=== PATIENT | female | born 1950 ===

== ENCOUNTER 2021-11-21 05:39 | Inpatient (IN) ==
[2021-11-21] MEDS ORDERED: 0.9 % Sodium Chloride 1,000 ML IVC ONE (05:45)
[2021-11-21 06:04] LABS: Basophils % 0.1 %; Eosinophils % 0.1 %; Hematocrit 35.4 % (35.3-44.9); Hemoglobin 11.6 g/dL (11.5-15.4); Immature Granulocytes % 0.3 % (0-4); Lymphocytes # 0.4 K/mcL (0.6-4.6); Lymphocytes % 5.2 %; Mean Corpuscular HGB Conc 32.8 g/dL (31.6-35.5); Mean Corpuscular Hemoglobin 28.9 pg (28.0-33.3); Mean Corpuscular Volume 88.1 fL (83.0-100.0); Mean Platelet Volume 11.9 fL (9.4-12.4); Monocytes # 0.8 K/mcL (0.0-1.3); Monocytes % 10.3 %; Neutrophils # 6.5 K/mcL (1.6-8.9); Nucleated Red Blood Cells 2.2 /100 WBC (0); Platelet Count 292 K/mcL (140-400); Red Blood Count 4.02 M/mcL (3.82-4.97); Red Cell Distribution Width 17.7 % (11.5-14.5); White Blood Count 7.7 K/mcL (4.3-11.1)
[2021-11-21 06:30] LABS: Troponin I 0.07 ng/mL (< 0.04)
[2021-11-21 06:43] LABS: Influenza A PCR Negative (Negative); Influenza B PCR Negative (Negative); Resp. Syncytial Virus PCR Negative (Negative)
[2021-11-21 06:48] LABS: SARS-CoV-2 by PCR (In House) Negative (Negative)
[2021-11-21 06:51] LABS: Alanine Aminotransferase 103 Units/L (7-52); Albumin 3.7 g/dL (3.5-5.7); Alkaline Phosphatase 128 Units/L (34-104); Aspartate Amino Transferase 102 Units/L (13-39); BUN/Creatinine Ratio 32 (6-26); Bilirubin,Total 1.7 mg/dL (0.3-1.0); Blood Urea Nitrogen 29 mg/dL (8-23); Calcium 9.7 mg/dL (8.6-10.3); Carbon Dioxide 24 mEq/L (23-29); Chloride 100 mEq/L (98-107); Creatine Kinase 59 Units/L (30-223); Globulin 3.8 g/dL (2.4-3.5); Glucose 119 mg/dL (70-105); Osmolality,Calculated 287 (280-300); Sodium 135 mEq/L (136-145); Total Protein 7.5 g/dL (6.4-8.9); eGFR For African Americans > 60 (> 60); eGFR For Non-African Americans 60 (> 60)
[2021-11-21 07:33] LABS: Bacteria,Urine Few per hpf (None-Few); Bilirubin,Urine Negative (Negative); Blood,Urine Moderate (Negative); Clarity,Urine Clear (Clear); Color,Urine Yellow (Yellow); Glucose,Urine (UA) Normal (Normal); Hyaline Casts,Urine Few per lpf (None Seen); Ketones,Urine Trace mg/dL (Negative); Leukocyte Esterase,Urine Moderate (Negative); Mucus,Urine Many per lpf (None-Few); Nitrite,Urine Positive (Negative); Protein,Urine 100 mg/dL (Neg-Trace); RBC,Urine 15-30 per hpf (0-3); Specific Gravity,Urine > 1.030 (1.010-1.025); Squamous Epithelial Cell,Urine Few per hpf (None-Few)
[2021-11-21] MEDS ORDERED: Azithromycin 500 MG in 0.9 % Sodium Chloride 250 ML IVPB ONE (07:41)
[2021-11-21] MEDS ORDERED: cefTRIAXone 1,000 MG in Water for inj. (sterile) 10 ML IVP ONE (07:41)
[2021-11-21] MEDS ORDERED: cefTRIAXone 1,000 MG in 0.9 % Sodium Chloride Mini Bag 100 ML IVPB ONE (08:15)
[2021-11-21] MEDS ORDERED: Morphine Sulfate 2 MG/ML SYRINGE IVP STA (08:46)
[2021-11-21] MEDS ORDERED: *HR* HYDROcodone/Acet 5/325 mg TABLET PO PRN (09:46)
[2021-11-21 10:44] LABS: Bilirubin,Direct 0.6 mg/dL (0.0-0.2)
[2021-11-21 11:08] LABS: C-Reactive Protein 49 mg/L (Less than 10)
[2021-11-21 11:26] LABS: Ferritin 67 ng/mL (10-120)
[2021-11-21] MEDS ORDERED: Naloxone 0.4 MG/ML INJ IVP PRN (12:26)
[2021-11-21] MEDS ORDERED: Perflutren Lipid Microsphere 1.3 ML in 0.9 % Sodium Chloride 8.7 ML IVP PRN (12:28)
[2021-11-21] MEDS: Ringers Solution, Lactated 1,000 ML IVC SCH (14:08)
[2021-11-21] MEDS: Gabapentin 300 MG CAPSULE PO SCH (20:45)
[2021-11-21] MEDS: Melatonin 3 MG TABLET PO PRN (21:50)
[2021-11-21] MEDS: Acetaminophen 325 MG TABLET PO PRN (22:11)
[2021-11-22 01:58] LABS: Hematocrit 32.7 % (35.3-44.9); Hemoglobin 10.5 g/dL (11.5-15.4); Mean Corpuscular HGB Conc 32.1 g/dL (31.6-35.5); Mean Corpuscular Hemoglobin 29.1 pg (28.0-33.3); Mean Corpuscular Volume 90.6 fL (83.0-100.0); Platelet Count 216 K/mcL (140-400); Red Blood Count 3.61 M/mcL (3.82-4.97); Red Cell Distribution Width 17.4 % (11.5-14.5); White Blood Count 9.3 K/mcL (4.3-11.1)
[2021-11-22 02:07] LABS: INR 1.7; Prothrombin Time 18.6 Seconds (9.4-12.1)
[2021-11-22 02:21] LABS: Alanine Aminotransferase 85 Units/L (7-52); Albumin 3.1 g/dL (3.5-5.7); Albumin/Globulin Ratio 0.9 (1.1-2.2); Alkaline Phosphatase 97 Units/L (34-104); Aspartate Amino Transferase 100 Units/L (13-39); BUN/Creatinine Ratio 39 (6-26); Bilirubin,Total 1.5 mg/dL (0.3-1.0); Blood Urea Nitrogen 29 mg/dL (8-23); Calcium 8.9 mg/dL (8.6-10.3); Carbon Dioxide 22 mEq/L (23-29); Chloride 105 mEq/L (98-107); Globulin 3.4 g/dL (2.4-3.5); Glucose 91 mg/dL (70-105); Magnesium 1.9 mg/dL (1.6-2.6); Osmolality,Calculated 289 (280-300); Phosphorous 2.6 mg/dL (2.7-4.5); Sodium 137 mEq/L (136-145); Total Protein 6.5 g/dL (6.4-8.9); eGFR For African Americans > 60 (> 60); eGFR For Non-African Americans > 60 (> 60)
[2021-11-22] MEDS: *HR* Enoxaparin 40 MG/0.4 ML SYRINGE SQ SCH (05:50)
[2021-11-22] MEDS: Azithromycin 250 MG TABLET PO SCH (10:07)
[2021-11-22] MEDS: FLUoxetine 20 MG CAPSULE PO SCH (10:07)
[2021-11-22] MEDS: cefTRIAXone 1,000 MG in 0.9 % Sodium Chloride 10 ML IVP SCH (10:07)
[2021-11-22] MEDS: Aspirin Enteric Coated 81 MG Tablet PO SCH (10:07)
[2021-11-22] MEDS: Gabapentin 300 MG CAPSULE PO SCH ×2 (10:15→20:32)
[2021-11-22] MEDS ORDERED: Furosemide 20 MG/2 ML VIAL IVP ONE (10:17)
[2021-11-22] MEDS: Ondansetron 4 MG/2 ML VIAL IVP PRN (11:42)
[2021-11-22] MEDS: Furosemide 40 MG/4 ML VIAL IVP SCH (16:39)
[2021-11-22] MEDS ORDERED: Furosemide 40 MG/4 ML VIAL IVP SCH (17:00)
[2021-11-22] MEDS: Acetaminophen 325 MG TABLET PO PRN (20:37)
[2021-11-22] MEDS: Melatonin 3 MG TABLET PO PRN (20:38)
[2021-11-23] MEDS: Acetaminophen 325 MG TABLET PO PRN (04:30)
[2021-11-23] MEDS: Melatonin 3 MG TABLET PO PRN (04:31)
[2021-11-23 05:30] LABS: Basophils % 0.1 %; Hematocrit 34.3 % (35.3-44.9); Hemoglobin 11.1 g/dL (11.5-15.4); Immature Granulocytes % 0.5 % (0-4); Lymphocytes # 0.7 K/mcL (0.6-4.6); Lymphocytes % 7.1 %; Mean Corpuscular HGB Conc 32.4 g/dL (31.6-35.5); Mean Corpuscular Hemoglobin 28.7 pg (28.0-33.3); Mean Corpuscular Volume 88.6 fL (83.0-100.0); Mean Platelet Volume 11.7 fL (9.4-12.4); Monocytes # 0.8 K/mcL (0.0-1.3); Monocytes % 8.6 %; Neutrophils # 7.9 K/mcL (1.6-8.9); Nucleated Red Blood Cells 2.6 /100 WBC (0); Platelet Count 224 K/mcL (140-400); Red Blood Count 3.87 M/mcL (3.82-4.97); Red Cell Distribution Width 17.2 % (11.5-14.5); Segmented Neutrophils % 83.7 %; White Blood Count 9.5 K/mcL (4.3-11.1)
[2021-11-23 05:47] LABS: Alanine Aminotransferase 125 Units/L (7-52); Albumin 3.3 g/dL (3.5-5.7); Alkaline Phosphatase 130 Units/L (34-104); Aspartate Amino Transferase 196 Units/L (13-39); BUN/Creatinine Ratio 35 (6-26); Blood Urea Nitrogen 31 mg/dL (8-23); Carbon Dioxide 24 mEq/L (23-29); Chloride 102 mEq/L (98-107); Globulin 3.4 g/dL (2.4-3.5); Glucose 102 mg/dL (70-105); Osmolality,Calculated 289 (280-300); Potassium 3.5 mEq/L (3.5-5.1); Sodium 136 mEq/L (136-145); Total Protein 6.7 g/dL (6.4-8.9); eGFR For African Americans > 60 (> 60); eGFR For Non-African Americans > 60 (> 60)
[2021-11-23] MEDS: *HR* Enoxaparin 40 MG/0.4 ML SYRINGE SQ SCH (06:29)
[2021-11-23] MEDS: FLUoxetine 20 MG CAPSULE PO SCH (08:56)
[2021-11-23] MEDS: Azithromycin 250 MG TABLET PO SCH (08:56)
[2021-11-23] MEDS: Gabapentin 300 MG CAPSULE PO SCH (08:56)
[2021-11-23] MEDS: Aspirin Enteric Coated 81 MG Tablet PO SCH (08:56)
[2021-11-23] MEDS: cefTRIAXone 1,000 MG in 0.9 % Sodium Chloride 10 ML IVP SCH (08:56)
[2021-11-23] MEDS ORDERED: Potassium Chloride Elixir 20 MEQ/15 ML UDC PO SCH (09:30)
[2021-11-23] MEDS: Furosemide 40 MG/4 ML VIAL IVP SCH (10:47)
[2021-11-23] MEDS: Ondansetron 4 MG/2 ML VIAL IVP PRN (11:05)
[2021-11-23] MEDS ORDERED: Acetaminophen IV 1,000 MG/100 ML BAG IVPB SCH (12:00)
[2021-11-23] MEDS ORDERED: Morphine Sulfate Oral CONC 10 MG/0.5 ML ORAL.SYG SL PRN (12:52)
[2021-11-23] MEDS ORDERED: Glycopyrrolate 0.2 MG/ML VIAL IVP PRN (13:48)
[2021-11-23] MEDS ORDERED: Saliva Stimulant 44.3ml BOTTLE PO PRN (13:51)
[2021-11-23] MEDS: Morphine Sulfate Oral CONC 10 MG/0.5 ML ORAL.SYG SL PRN (14:18)
[2021-11-23] MEDS: *HR* LORazepam Oral Conc 2 MG/ML PO PRN (14:49)
[2021-11-23 18:40] VITALS: BP 101/66; PULSE 69; TEMP 97.6; O2SAT 94
[2021-11-23] MEDS: Ringers Solution, Lactated 1,000 ML IVC SCH (19:09)
[2021-11-23] MEDS: Morphine Sulfate 2 MG/ML SYRINGE IVP PRN (21:52)
[2021-11-24] MEDS: Morphine Sulfate 2 MG/ML SYRINGE IVP PRN ×9 (01:17→22:59)
[2021-11-24] MEDS: Morphine Sulfate Oral CONC 10 MG/0.5 ML ORAL.SYG SL PRN (04:01)
[2021-11-24] MEDS: *HR* LORazepam Oral Conc 2 MG/ML PO PRN (04:56)
[2021-11-24] MEDS: Azithromycin 250 MG TABLET PO SCH (07:40)
[2021-11-24] MEDS: cefTRIAXone 1,000 MG in 0.9 % Sodium Chloride 10 ML IVP SCH (07:59)
[2021-11-24] MEDS ORDERED: Potassium Chloride Elixir 20 MEQ/15 ML UDC PO SCH (09:00)
[2021-11-24] MEDS: *HR* LORazepam 2 MG/ML VIAL IVP PRN ×6 (10:19→22:59)
[2021-11-25] MEDS: *HR* LORazepam 2 MG/ML VIAL IVP PRN ×7 (00:23→07:44)
[2021-11-25] MEDS: Morphine Sulfate 2 MG/ML SYRINGE IVP PRN ×3 (01:39→07:44)
[2021-11-25] MEDS ORDERED: *HR* LORazepam 2 MG/ML VIAL IVP PRN (08:15)
[2021-11-25] MEDS ORDERED: Morphine Sulfate 2 MG/ML SYRINGE IVP PRN (08:50)
== END 2021-11-25 09:43 | disposition expired | DRG 871 ==
LOC: EMEROOARM 05:39 → 3ANU 05:39 → SUATTDRO 12:51 → 2ANU 11-23 17:15
PROVIDERS: ADMIT Internal Medicine; ATTEND Registered Nurse